=== PATIENT | female | born 1960 | race Caucasian/White ===

== ENCOUNTER 2018-07-08 13:15 | Outpatient (CLI) | payer OTHER ==
--- NOTE | 2018-07-09 10:08 | Mammography Report ---
Reason: SCREENING MAMMO Procedure Date: 07/08/2018 Accession Number: [id number] / [id number] Procedure: MGS - Screening Mammo Dig Bilat CPT Code: FULL RESULT: EXAM: Screening Mammo Dig Bilat DATE: 07/08/2018 1:30 PM CLINICAL HISTORY: 58 year-old nulliparous female with history of early menses. TECHNIQUE: Bilateral CC and MLO views were obtained. COMPARISON: 08/17/2014. FINDINGS: The breasts demonstrate diffuse fatty replacement bilaterally. A coarse typically benign calcification is again seen in the right breast. There is a stable fat-containing nodule in the left breast with morphologic appearance consistent with a benign-appearing lymph node, typically benign finding for intramammary lymph node. No suspicious masses, clustered microcalcifications, or regions of architectural distortion are identified. IMPRESSION: Benign findings RECOMMENDATION: Routine annual screening unless otherwise clinically indicated. BIRADS CATEGORY 2: Benign findings STANDARD QUALIFYING STATEMENTS: 1. This examination was reviewed with the aid of Computer-Aided Detection (CAD). 2. A negative or benign imaging report should not delay biopsy if clinically suspicious findings are present. Consider surgical consultation if warrented. More than 5% of cancers are not identified by imaging. 3. Dense breasts may obscure an underlying neoplasm. 4. This examination was reviewed without the aid of 3D breast imaging (tomosynthesis).
== END 2018-07-08 13:16 | disposition home or self-care (01) ==
LOC: DI.S 13:15
PROVIDERS: ATTEND Registered Nurse
DX: Z12.31 Encounter for screening mammogram for malignant neoplasm of breast (principal)
CPT/HCPCS: 77067

== ENCOUNTER 2019-09-29 09:16 | Outpatient (CLI) | payer OTHER ==
--- NOTE | 2019-09-29 16:10 | XRAY Report ---
Reason: PAIN IN LEFT KNEE Procedure Date: 09/29/2019 Accession Number: [id number] / [id number] Procedure: XRS - Knee 3 View LT CPT Code: Final Report FULL RESULT: EXAM: LEFT KNEE RADIOGRAPHY EXAM DATE: 09/29/2019 09:27 AM. CLINICAL HISTORY: PAIN IN LEFT KNEE. COMPARISON: None. TECHNIQUE: 3 views. FINDINGS: Bones: No fracture or focus of bony destruction. Joints: Multicompartment degenerative changes noted; maximal at the medial and patellofemoral compartments with narrowing, subchondral sclerosis and osteophytic formation. Soft Tissues: Small suprapatellar joint effusion. Mild enthesi pathic changes at the quadriceps insertion. IMPRESSION: 1. No fracture or subluxation. 2. Degenerative changes, as described. RADIA
== END 2019-09-29 09:17 | disposition home or self-care (01) ==
LOC: DI.S 09:16
PROVIDERS: ATTEND Registered Nurse
DX: M17.12 Unilateral primary osteoarthritis, left knee (principal)

== ENCOUNTER 2020-07-25 15:04 | Outpatient (CLI) | payer OTHER ==
--- NOTE | 2020-07-26 15:35 | Mammography Report ---
BILATERAL DIGITAL SCREENING MAMMOGRAM 3D/2D: 07/25/2020 CLINICAL: Routine screening. Comparison is made to exams dated: 07/08/2018 mammogram and 08/17/2014 mammogram - [facility]. The tissue of both breasts is predominantly fatty. No significant masses, calcifications, or other findings are seen in either breast. There has been no significant interval change. IMPRESSION: NEGATIVE There is no mammographic evidence of malignancy. A 1 year screening mammogram is recommended. This exam was interpreted at Station ID: [id number]. NOTE: For mammograms, a report in lay terms will be sent to the patient. Approximately 15% of breast malignancies will not be visualized mammographically. In the management of a palpable breast mass, a negative mammogram must not discourage biopsy of a clinically suspicious lesion. Electronically Signed By: Dionne ho/yeseniarad:07/25/2020 17:30:26 ACR BI-RADS Category 1: Negative 3341F PARENCHYMAL PATTERN: (F) - The breast(s) demonstrate(s) diffuse fatty replacement. BI-RADS CATEGORY: (1) - 1 RECOMMENDATION: (ANNUAL) - Recommend routine annual screening mammography. [id number] 1 year screening LATERALITY: (B)
== END 2020-07-25 15:05 | disposition home or self-care (01) ==
LOC: DI 15:04
PROVIDERS: ATTEND Registered Nurse
DX: Z12.31 Encounter for screening mammogram for malignant neoplasm of breast (principal)
CPT/HCPCS: 77063; 77067

== ENCOUNTER 2022-08-07 13:57 | Outpatient (CLI) | payer OTHER ==
--- NOTE | 2022-08-08 10:58 | Mammography Report ---
BILATERAL DIGITAL SCREENING MAMMOGRAM 3D/2D: 08/07/2022 CLINICAL: Routine screening. Comparison is made to exams dated: 07/08/2018 mammogram, 07/25/2020 mammogram, and 08/17/2014 mammog [facility]. Both breasts are almost entirely fatty (category a/<25% glandular tissue). No significant masses, calcifications, or other findings are seen in either breast. There has been no significant interval change. IMPRESSION: NEGATIVE There is no mammographic evidence of malignancy. A 1 year screening mammogram is recommended. Based on the Tyrer Cuzick model (a risk assessment model) the patients lifetime risk is 6.5% and her 10 year risk is 3.0%. According to the ACR, ACS, and NCCN guidelines, an annual breast MRI exam franco g with mammogram is recommended if the patients lifetime risk is 20% or greater. This exam was interpreted at Station ID: [id number]. NOTE: For mammograms, a report in lay terms will be sent to the patient. Approximately 15% of breast malignancies will not be visualized mammographically. In the management of a palpable breast mass, a negative mammogram must not discourage biopsy of a clinically suspicious lesion. Electronically Signed By: Coy Mancini M.D. aty/penrad:08/07/2022 18:18:16 ACR BI-RADS Category 1: Negative 3341F PARENCHYMAL PATTERN: (F) - The breast(s) demonstrate(s) diffuse fatty replacement. BI-RADS CATEGORY: (1) - 1 RECOMMENDATION: (ANNUAL) - Recommend routine annual screening mammography. [id number] 1 year screening LATERALITY: (B)
== END 2022-08-07 13:58 | disposition home or self-care (01) ==
LOC: DI.S 13:57
DX: Z12.31 Encounter for screening mammogram for malignant neoplasm of breast (principal)

== ENCOUNTER 2023-04-04 09:02 | Outpatient (CLI) | payer MEDICARE ==
--- NOTE | 2023-04-04 12:03 | XRAY Report ---
PROCEDURE: Knee 3 View LT INDICATIONS: OSTEOARTHRITIS OF LEFT KNEE JOINT TECHNIQUE: 3 views of the left knee(s) were acquired. COMPARISON: None. FINDINGS: Bones: No fractures or dislocations. Moderate tricompartmental osteoarthritis is seen most notably in medial femoral tibial compartment with significant joint space narrowing, subchondral sclerosis an d marginal osteophyte formation. Mild lateral subluxation of patella is seen. No suspicious bony lesi ons. Soft tissues: Small knee joint effusion. No suspicious soft tissue calcifications or masses. IMPRESSION: No fracture or dislocation. Moderate tricompartmental osteoarthritis and small joint effusion. Reviewed by: Aniket Patel MD on 04/04/2023 12:01 PM PDT Approved by: Aniket Patel MD on 04/04/2023 12:01 PM PDT Station ID: [id number]
== END 2023-04-04 09:03 | disposition home or self-care (01) ==
LOC: DI.S 09:02
PROVIDERS: ATTEND Registered Nurse
DX: M17.12 Unilateral primary osteoarthritis, left knee (principal); M25.462 Effusion, left knee

== ENCOUNTER 2023-04-28 12:06 | Outpatient (CLI) | payer MEDICARE ==
--- NOTE | 2023-04-28 16:46 | XRAY Report ---
PROCEDURE: Ankle 2 View LT INDICATIONS: PAIN OF LEFT ANKLE JOINT TECHNIQUE: 2 views of the ankle were acquired. COMPARISON: None. FINDINGS: Bones: Mildly displaced distal medial malleolar fracture.. Prominent calcaneal spur is present. Ankl e mortise is normally aligned. No suspicious bony lesions. Soft tissues: Mild ankle edema. Achilles tendon appears normal. IMPRESSION: Mildly displaced distal medial malleolar fracture. Reviewed by: Tabitha Faria MD on 04/28/2023 4:44 PM PDT Approved by: Tabitha Faria MD on 04/28/2023 4:44 PM PDT Station ID: [id number]
== END 2023-04-28 12:07 | disposition home or self-care (01) ==
LOC: DI.S 12:06
PROVIDERS: ATTEND Internal Medicine
DX: S82.52XA Displaced fracture of medial malleolus of left tibia, initial encounter for closed fracture (principal)

== ENCOUNTER 2023-05-14 14:02 | Outpatient (CLI) | payer MEDICARE ==
--- NOTE | 2023-05-14 18:02 | DEXA Report ---
PROCEDURE: Dexa Spine and/or Hip INDICATIONS: POST MENOPAUSAL, OSTEOARTHRITIS TECHNIQUE: Dual energy x-ray absorptiometry (DEXA) was performed in the regions detailed below. COMPARISON: None. FINDINGS: Lumbar Spine: Bone Mineral Density 1.427 g/cm/cm,T score 2.1. Normal Left Femoral Neck: Bone Mineral Density 1.22-3 g/cm/cm, T score 1.3. Normal Left Hip: Bone Mineral Density 1.235 g/cm/cm,T score 1.8. Normal (T score greater or equal to -1.0: NORMAL) (T score from -1.1 to -2.4: OSTEOPENIA) (T score less than or equal to -2.5 to: OSTEOPOROSIS) IMPRESSION: Normal bone mineral density Patients with diagnosis of osteoporosis or osteopenia should have regular bone mineral density assess ment. For those eligible for Medicare, routine testing is allowed once every 2 years. Testing frequ ency can be increased for patients who have rapidly progressing disease or for those who are receivin g medical therapy to restore bone mass. Reviewed by: Dariusz Alexandra MD on 05/14/2023 5:01 PM KIERA Approved by: Dariusz Alexandra MD on 05/14/2023 5:01 PM KIERA Station ID: [id number]
== END 2023-05-14 14:03 | disposition home or self-care (01) ==
LOC: DI 14:02
PROVIDERS: ATTEND Registered Nurse
DX: Z78.0 Asymptomatic menopausal state (principal)